=== PATIENT | female | born 1960 ===

== ENCOUNTER 2018-09-06 10:57 | Emergency (ER) | payer BC, OTHER ==
[2018-09-06 11:48] VITALS: BP 129/85
[2018-09-06] MEDS ORDERED: Acetaminophen TAB* 325 MG PO ONE (13:30)
[2018-09-06] MEDS ORDERED: Ibuprofen TAB* 600 MG PO ONE (13:30)
[2018-09-06] MEDS ORDERED: Ondansetron ODT TAB* 4 MG PO ONE (13:30)
--- NOTE | 2018-09-06 13:30 | UC ---
General HPI - HPI Summary HPI Summary: pt presents to the care today for evaluation of her headache, earache, nausea and body aches. she states that family was visiting for the holidays and one of her family members was diagnosed with the flu. she states she woke up with the symptoms today. She states she feels horrible. - History of Current Complaint Chief Complaint: UCGeneralIllness Stated Complaint: HEADACHE EARS EYES ACHY Time Seen by Provider: 09/06/18 13:18 Hx Obtained From: Patient Onset/Duration: Lasting Days - 1 Onset Severity: Moderate Current Severity: Moderate Pain Intensity: 9 Associated Signs & Symptoms: Positive: Back Pain, Headache, Nausea, Other - body aches - Allergy/Home Medications Allergies/Adverse Reactions: Allergies Allergy/AdvReac Type Severity Reaction Status Date / Time amoxicillin Allergy Rash Verified 09/06/18 11:44 doxycycline Allergy Rash And Verified 09/06/18 11:44 Itching Penicillins Allergy Rash Verified 09/06/18 11:44 prochlorperazine Allergy Anaphylatic Verified 09/06/18 11:44 [From Compazine] Shock Sulfa (Sulfonamide Allergy Rash Verified 09/06/18 11:45 Antibiotics) Tetracyclines Allergy Rash And Verified 09/06/18 11:44 Itching Home Medications: Home Medications Cholecalciferol TAB* [Vitamin D TAB*] 1 tab PO DAILY 09/06/18 [History Confirmed 09/06/18] PMH/Surg Hx/FS Hx/Imm Hx Previously Healthy: Yes - Surgical History Surgical History: Yes Surgery Procedure, Year, and Place: gallbladder removal. appendectomy - Social History Alcohol Use: None Substance Use Type: None Smoking Status (MU): Never Smoked Tobacco Review of Systems All Other Systems Reviewed And Are Negative: No Constitutional: Positive: Chills, Fatigue. Negative: Fever Skin: Negative: Rash, Bruising Eyes: Negative: Eye Redness ENT: Positive: Sore Throat, Ear Ache Respiratory: Positive: Cough - mild. Negative: Shortness Of Breath Cardiovascular: Positive: Chest Pain - which she is describing as part of her body pain. Gastrointestinal: Positive: Nausea. Negative: Abdominal Pain, Vomiting, Diarrhea Genitourinary: Negative: Dysuria, Hematuria, Frequency Motor: Negative: Negative Neurovascular: Negative: Negative Musculoskeletal: Negative: Edema Neurological: Positive: Headache Psychological: Positive: Negative Is Patient Immunocompromised?: No Physical Exam Triage Information Reviewed: Yes Appearance: No Pain Distress, Ill-Appearing - pt looks fatigued and tired Vital Signs: Initial Vital Signs Temp 99.8 F 09/06/18 11:42 Pulse 98 09/06/18 11:42 Resp 20 09/06/18 11:42 BP 129/85 09/06/18 11:42 Pulse Ox 98 09/06/18 11:42 Eye Exam: Normal ENT Exam: Normal Neck exam: Normal Respiratory Exam: Normal Cardiovascular Exam: Normal Abdomen Description: Positive: Nontender, Soft Bowel Sounds: Positive: Present Musculoskeletal Exam: Normal Neurological: Positive: Alert, Fatigued Psychological Exam: Normal Skin Exam: Normal Course/Dx - Course Course Of Treatment: influenza a/b negative. i will tx pt with tamiflu. family member diagnosed yesterday with the flu. pt has flu like symptoms. also rx for zofran and motrin as per pt's request for the motrin. pt encouraged to take tyelnol for aches and pains. pt also encouraged to f/u with pcp. - Diagnoses Provider Diagnosis: Viral illness Discharge - Sign-Out/Discharge Documenting (check all that apply): Patient Departure All imaging exams completed and their final reports reviewed: No Studies - Discharge Plan Condition: Stable Disposition: HOME Prescriptions: Ibuprofen TAB* [Motrin TAB* 800 MG] 800 mg PO Q8HR #30 tab Ondansetron ODT TAB* [Zofran 4 MG Odt TAB*] 8 mg PO Q6H PRN #30 tab.odt PRN Reason: Nausea Oseltamivir SUSP 75 MG dose* [Tamiflu SUSP 75 MG dose*] 75 mg PO BID #10 oral.syrin Patient Education Materials: Viral Syndrome (ED) Referrals: Todd Cooley MD [Primary Care Provider] - Additional Instructions: Take the tamiflu as instructed. take the zofran for nausea. take tylenol and motrin every 6 hours for pain. return if worse or any new symptoms. Please followup with your primary care physician on Sunday. If you are not better, please go to the emergency department for further care and evaluation. - Billing Disposition and Condition Condition: STABLE Disposition: Home
== END 2018-09-06 13:46 | disposition home or self-care (01) ==
LOC: UCCORT 10:57
DX: B34.9 Viral infection, unspecified (principal); Z88.0 Allergy status to penicillin; Z88.2 Allergy status to sulfonamides; Z88.1 Allergy status to other antibiotic agents; Z88.8 Allergy status to other drugs, medicaments and biological substances
CPT/HCPCS: 99212; A9270-GY; G0463